=== PATIENT | male | born 1995 | race Caucasian/White ===

== ENCOUNTER → 2019-05-05 | Outpatient (CLI) | payer OTHER ==
--- NOTE | 2019-05-05 11:28 | REP ---
Three-phase radionuclide bone scan of the tibia and fibula bilaterally for worsening bilateral banerjee pain for 1 year, exacerbated with long distance running. On the skeletal phase of the study there is increased uptake in the cortex of the right and left tibia. This is compatible with traumatic. Ostitis. There is also increased uptake in the tarsal ossicles bilaterally, possibly from repetitive trauma. The On the soft tissue and vascular phases of the study there is mildly increased soft tissue uptake bilaterally. Impression: The findings are compatible with bilateral tibial traumatic periostitis. The uptake in the tarsal ossicles may also be secondary to the trauma. The study is performed with 22 mCi of technetium 99m MDP. Electronically Signed by Morales Woodson MD 05/05/2019 11:21 A
== END ==
LOC: M RAD 07:18
PROVIDERS: ATTEND Physician Assistant
DX: M79.604 Pain in right leg (principal)

== ENCOUNTER 2020-11-08 19:05 | Emergency (ER) | payer OTHER ==
[~2020-11-08] VITALS: Ht 172.7 cm; Wt 112.1 kg
[2020-11-09 01:47] VITALS: BP 142/68
[2020-11-09 01:49] LABS: RSV AMPLIFICATION NEGATIVE (NEGATIVE)
== END 2020-11-09 02:18 | disposition home or self-care (01) ==
LOC: M ED 19:05
DX: U07.1 COVID-19 (principal); G89.29 Other chronic pain